=== PATIENT | male | born 2000 | race Two or more races ===

== ENCOUNTER 2019-09-16 14:51 | Emergency (ER) | payer SELFPAY ==
[2019-09-16] MEDS ORDERED: ONDANSETRON HCL INJ/PF 4 MG/2 ML SDV IV ONE (17:42)
--- NOTE | 2019-09-16 17:55 | ER Document Report ---
ED General - General Chief Complaint: Nausea/Vomiting Stated Complaint: VOMITING,ABDOMINAL PAIN,CHILLS Time Seen by Provider: 09/16/19 17:11 - HPI Notes: Patient is a 19-year-old male who presents to the emergency department for e valuation of vomiting and diarrhea. He states that he has had this badly for about 5 days, states it began a little bit before then. He states he said 3 or 4 episodes of nonbloody, nonbilious emesis daily. He said 3-4 episodes of loose stools daily. He states he has intermittent cramping on bilateral sides of his abdomen, near his ribs. It seems to switch randomly. He has had some chills, is unaware of shon fevers, but does not have a thermometer. He states he is urinating but his urine seems dark. He denies any dysuria, hematuria, urinary frequency. He states he has had a minimal cough, but attributes this to smoking. States is not worse than normal. - Related Data Allergies/Adverse Reactions: No Known Allergies Allergy (Unverified 09/16/19 17:43) Home Medications: None Past Medical History - General Information source: Patient - Social History Smoking Status: Current Every Day Smoker Frequency of alcohol use: Rare Family History: Other - Some "bone marrow issue" in his mother Psychiatric Medical History: Reports: Hx Anxiety, Hx Depression Past Surgical History: Reports: Hx Testicular Surgery - Torsion repair Review of Systems - Review of Systems Constitutional: See HPI Respiratory: See HPI Gastrointestinal: See HPI -: Yes All other systems reviewed and negative Physical Exam - Vital signs Vitals: Temp Pulse Resp BP Pulse Ox 98.2 F 70 16 137/91 H 98 09/16/19 16:39 09/16/19 16:39 09/16/19 16:39 09/16/19 16:39 09/16/19 16:39 - Notes Notes: Vital signs reviewed, please refer to chart. Head is normocephalic, atraumatic. Pupils equal round, reactive to light. TMs are pearly romero, good light reflex noted. Pharynx is without erythema or exudate, he does have enlarged tonsils bilaterally. Neck is supple without meningismus. Heart is regular rate and rhythm. Lungs are clear to auscultation bilaterally. Abdomen is soft, mildly tender in the epigastrium without rebound or guarding, normoactive bowel sounds throughout. Extremities without cyanosis, clubbing. Posterior calves are nontender. Peripheral pulses are equal. Skin is warm and dry. Patient is awake, alert, neurological exam is nonfocal. Course - Re-evaluation Re-evalutation: 09/16/19 17:55 Patient presents to the emergency department for evaluation. He complains of vomiting and diarrhea ongoing for 5 days. He has a nonsurgical abdomen. We will check basic blood work, give IV fluids, nausea treatment. He is stable at this time, we will continue to monitor. 09/16/19 20:34 Laboratory investigations revealed a very modest elevation in lipase, certainly not to a level concerning for acute pancreatitis at this time. Serial abdominal exams are nonsurgical, although he does remain mildly tender in the and entire upper abdomen. Patient feels significantly improved. I will send him home with nausea medication. I encouraged him to stick to a clear liquid diet for the next 24 hours, advance slowly. He was amenable to this plan. Otherwise we will refer him for follow-up. We talked at length about symptoms of acute pancreatitis, as well as other concerning symptoms that should prompt him to return, and he voiced understanding. - Vital Signs Vital signs: Temp Pulse Resp BP Pulse Ox 98.5 F 81 16 141/89 H 98 09/16/19 17:42 09/16/19 17:42 09/16/19 17:42 09/16/19 17:42 09/16/19 17:42 - Laboratory Result Diagrams: 09/16/19 17:47 09/16/19 17:47 Laboratory results interpreted by me: 09/16/19 17:47 Total Protein 8.6 H Albumin 5.4 H Lipase 429.6 H Discharge - Discharge Clinical Impression: Upper abdominal pain Nausea and vomiting Qualifiers: Vomiting Intractability: non-intractable Diarrhea Qualifiers: Diarrhea type: presumed infectious Qualified Code(s): R19.7 - Diarrhea, unspecified Condition: Stable Disposition: HOME, SELF-CARE Instructions: Abdominal Pain ([facility]), Nausea or Vomiting, Nonspecific ([facility]), Diarrhea, Nonspecific ([facility]) Additional Instructions: Stay hydrated with small, frequent sips of fluids. Clear liquid diet as discussed. Use Zofran as needed for nausea and vomiting. Advance slowly to a bland diet as tolerated. If you develop fevers, worsening vomiting, worsening pain, or any other new or concerning symptoms, return immediately to the emergency department for reevaluation. Otherwise, follow-up with primary care this week.
[2019-09-16] MEDS: NORMAL SALINE 1000 ML 1,000 ML IV PRN ×2 (17:59→18:53)
[2019-09-16 18:27] LABS: ABSOLUTE LYMPHOCYTES (AUTO) 1.9 10^3/uL (0.5-4.7); ABSOLUTE MONOCYTES (AUTO) 0.6 10^3/uL (0.1-1.4); ABSOLUTE NEUT (AUTO) 7.3 10^3/uL (1.7-8.2); BASOPHILS % (AUTO) 0.4 % (0-2); EOSINOPHILS % (AUTO) 0.4 % (0-6); HEMATOCRIT 43.5 % (37.9-51.0); HEMOGLOBIN 15.4 g/dL (13.5-17.0); LYMPHOCYTES % (AUTO) 19.4 % (13-45); MEAN CORPUSCULAR HEMOGLOBIN 32.9 pg (27.0-33.4); MEAN CORPUSCULAR HGB CONC 35.4 g/dL (32.0-36.0); MEAN CORPUSCULAR VOLUME 93 fl (80-97); MONOCYTES % (AUTO) 5.9 % (3-13); PLATELET COUNT 280 10^3/uL (150-450); RED BLOOD COUNT 4.67 10^6/uL (4.35-5.55); RED CELL DISTRIBUTION WIDTH 12.7 % (11.5-14.0); SEGMENTED NEUTROPHILS % (AUTO) 73.9 % (42-78); TOTAL CELLS COUNTED % (AUTO) 100 %; WHITE BLOOD COUNT 9.9 10^3/uL (4.0-10.5)
[2019-09-16 18:42] LABS: ALBUMIN 5.4 g/dL (3.5-5.0); ALKALINE PHOSPHATASE 59 U/L (38-126); ANION GAP 11 (5-19); ASPARTATE AMINO TRANSFERASE 26 U/L (17-59); BILIRUBIN,DIRECT 0.1 mg/dL (0.0-0.4); BILIRUBIN,TOTAL 1.2 mg/dL (0.2-1.3); BLOOD UREA NITROGEN 11 mg/dL (7-20); CALCIUM 10.1 mg/dL (8.4-10.2); CARBON DIOXIDE 27 mmol/L (22-30); CHLORIDE 103 mmol/L (98-107); GLUCOSE 95 mg/dL (75-110); POTASSIUM 3.8 mmol/L (3.6-5.0); TOTAL PROTEIN 8.6 g/dL (6.3-8.2)
[2019-09-16 19:38] LABS: APPEARANCE,URINE CLEAR; BILIRUBIN,URINE NEGATIVE (NEGATIVE); COLOR,URINE YELLOW; GLUCOSE, URINE NEGATIVE (NEGATIVE); KETONES,URINE NEGATIVE (NEGATIVE); LEUKOCYTE ESTERASE,URINE NEGATIVE (NEGATIVE); NITRITE,URINE NEGATIVE (NEGATIVE); PROTEIN,URINE NEGATIVE (NEGATIVE); URINE SPECIFIC GRAVITY 1.012; UROBILINOGEN,URINE NEGATIVE mg/dL (<2.0)
[2019-09-16] MEDS ORDERED: ONDANSETRON ODT 4 MG TAB (6 TAB/ER DISP) PO PRN (20:34)
[2019-09-16 20:54] VITALS: BP 139/82
== END 2019-09-16 20:51 | disposition home or self-care (01) ==
LOC: ER 14:51
DX: R11.2 Nausea with vomiting, unspecified (principal); R19.7 Diarrhea, unspecified; R10.10 Upper abdominal pain, unspecified; R10.811 Right upper quadrant abdominal tenderness; R10.816 Epigastric abdominal tenderness; R10.812 Left upper quadrant abdominal tenderness; R68.83 Chills (without fever); R05 Cough; J35.1 Hypertrophy of tonsils; F17.200 Nicotine dependence, unspecified, uncomplicated
CPT/HCPCS: 99283; 96361; 96374; 36415; 83690; 85025; 80053; 81001; J2405; J7030